=== PATIENT | female | born 1945 | race American Indian/Alaskan Native ===

== ENCOUNTER 2017-10-11 14:51 | Emergency (ER) | payer MEDICARE, OTHER ==
[2017-10-11 15:54] LABS: Basophils % (Auto) 0.4 % (0.0-1.8); Eosinophils % (Auto) 1.8 % (0.0-4.3); Hematocrit 37.9 % (30.3-42.9); Hemoglobin 12.7 gm/dl (10.1-14.3); Mean Corpuscular HGB Conc 34 % (30-34); Mean Corpuscular Hemoglobin 32 pg (28-32); Mean Corpuscular Volume 95 fl (79-97); Platelet Count 303 K/mm3 (140-440); Red Cell Distribution Width 13.1 % (13.2-15.2); White Blood Count 5.8 K/mm3 (4.5-11.0)
[2017-10-11 16:09] LABS: Anion Gap 15 mmol/L; BUN/Creatinine Ratio 33; Blood Urea Nitrogen 13 mg/dL (7-17); Calcium 8.4 mg/dL (8.4-10.2); Carbon Dioxide 26 mmol/L (22-30); Chloride 104.4 mmol/L (98-107); Glucose 100 mg/dL (65-100); Potassium 4.1 mmol/L (3.6-5.0); Sodium 141 mmol/L (137-145)
[2017-10-11] MEDS ORDERED: ASPIRIN PO ONE (21:09)
[2017-10-11] MEDS ORDERED: ALUM-MAG HYDROX-SIMETH 200-200-20MG/5ML PO ONE (21:09)
--- NOTE | 2017-10-11 21:31 | Emergency Department Report ---
ED Chest Pain HPI - General Chief Complaint: Chest Pain Stated Complaint: CHEST PAIN Time Seen by Provider: 10/11/17 20:17 Source: patient Mode of arrival: Ambulatory Limitations: No Limitations - History of Present Illness Initial Comments: 72-year-old female with a past medical history of GERD and possible elevated cholesterol presents to the hospital playing a left upper chest pain 3-4 days. Pain is intermittent, throbbing, rated 5/10 intensity. Patient ate greens last night sweats she thinks increase her symptoms that worsened in the evening. Patient is to take her Nexium, antacid, gas tablets without relief. She denies nausea, vomiting, diaphoresis, or shortness of breath. No posterior calf tenderness, leg asymmetry, or edema. Patient reports her last stress test was 8-9 years ago. Patient stopped smoking 20 years ago. Patient plans to travel out of state tomorrow - Related Data Previous Rx's Medication Instructions Recorded Last Taken Type Aspirin [Aspirin EC] 325 mg PO DAILY #30 tablet. 10/11/17 Unknown Rx Allergies Allergy/AdvReac Type Severity Reaction Status Date / Time codeine AdvReac Intermediate SWEAT,BREATHING Unverified 02/14/14 09:13 DIFFICULTIES Heart Score - HEART Score History: Slightly suspicious EKG: Non-specific Age: > 65 Risk factors: 1-2 risk factors Troponin: < normal limit HEART Score: 4 ED Review of Systems ROS: Stated complaint: CHEST PAIN Other details as noted in HPI Comment: All other systems reviewed and negative Other: Constitutional: No fevers chills Eyes: No eye pain visual changes ENT: No ear pain or throat pain Neck: Denies pain Respiratory: Denies cough wheezing shortness of breath Cardiovascular: as per hpi GI: Denies abdominal pain, nausea, vomiting, diarrhea : Denies dysuria Musculoskeletal: Denies back pain, joint swelling Skin: Denies rash, lesions, erythema Neurologic: Denies headache, numbness, weakness Psychiatric: Denies suicidal ideation, hallucinations ED Past Medical Hx - Past Medical History Previous Medical History?: No - Surgical History Past Surgical History?: Yes Additional Surgical History: Hernia repair - Social History Smoking Status: Never Smoker Substance Use Type: None - Medications Home Medications: Home Medications Medication Instructions Recorded Confirmed Last Taken Type Aspirin [Aspirin EC] 325 mg PO DAILY #30 tablet. 10/11/17 Unknown Rx ED Physical Exam - General Limitations: No Limitations - Other Other exam information: General: No limitations, patient is alert in no acute distress Head exam: Atraumatic, normocephalic Eyes exam: Normal appearance ENT: Moist mucous membrane, normal oropharynx Neck exam: Normal inspection, full range of motion, no meningismus nontender Respiratory exam: Clear to auscultation bilateral, no wheezes, rales, crackles Cardiovascular: Normal rate and rhythm, left upper chest wall tenderness Abdomen: Soft, nondistended, and nontender, with normal bowel sounds, no rebound, or guarding Extremity: Full range of motion normal inspection no deformity, tenderness or edema Back: Normal Inspection, full range of motion, no tenderness Neurologic: Alert, oriented x3, cranial nerves intact, no motor or sensory deficit Psychiatric: normal affect, normal mood Skin: Warm, dry, intact ED Course Vital Signs 10/11/17 15:01 Temperature 98.4 F Pulse Rate 72 Respiratory 18 Rate Blood Pressure 122/61 O2 Sat by Pulse 98 Oximetry ORI score - Ori Score Age > 65: (1) Yes Aspirin use within the Past 7 Days: (0) No 3 or more CAD Risk Factors: (0) No 2 or more Angina events in past 24 hrs: (1) Yes Known CAD with more than 50% Stenosis: (0) No Elevated Cardiac Markers: (0) No ST Deviation Greater than 0.5mm: (0) No ORI Score: 2 ED Medical Decision Making - Lab Data Result diagrams: 10/11/17 15:26 10/11/17 15:26 Lab Results 10/11/17 10/11/17 10/11/17 Range/Units 15:26 15:26 17:48 WBC 5.8 (4.5-11.0) K/mm3 RBC 4.00 (3.65-5.03) M/mm3 Hgb 12.7 (10.1-14.3) gm/dl Hct 37.9 (30.3-42.9) % MCV 95 (79-97) fl MCH 32 (28-32) pg MCHC 34 (30-34) % RDW 13.1 L (13.2-15.2) % Plt Count 303 (140-440) K/mm3 Lymph % (Auto) 39.4 H (13.4-35.0) % [place] % (Auto) 8.4 H (0.0-7.3) % Eos % (Auto) 1.8 (0.0-4.3) % Baso % (Auto) 0.4 (0.0-1.8) % Lymph # 2.3 (1.2-5.4) K/mm3 [place] # 0.5 (0.0-0.8) K/mm3 Eos # 0.1 (0.0-0.4) K/mm3 Baso # 0.0 (0.0-0.1) K/mm3 Seg Neutrophils % 50.0 (40.0-70.0) % Seg Neutrophils # 2.9 (1.8-7.7) K/mm3 Sodium 141 (137-145) mmol/L Potassium 4.1 (3.6-5.0) mmol/L Chloride 104.4 (98-107) mmol/L Carbon Dioxide 26 (22-30) mmol/L Anion Gap 15 mmol/L BUN 13 (7-17) mg/dL Creatinine 0.4 L (0.7-1.2) mg/dL Estimated GFR > 60 ml/min BUN/Creatinine Ratio 33 % Glucose 100 (65-100) mg/dL Calcium 8.4 (8.4-10.2) mg/dL Troponin T < 0.010 < 0.010 (0.00-0.029) ng/mL - EKG Data -: EKG Interpreted by Me EKG shows normal: sinus rhythm, axis (14), QRS complexes (73), ST-T waves (no stemi/t inv) Rate: normal (70) - EKG Data When compared to previous EKG there are: previous EKG unavailable - Radiology Data Radiology results: image reviewed (chest x-ray: negative, read by me) - Medical Decision Making Plan to admit patient to the hospital for further cardiac workup including stress testing. Also suspect that there is a MSK component to chest pain and possible GERD Patient declines admission at this time. Understands I cannot rule out unstable angina, or sudden cardiac . Patient states she has a dog at home that needs attention and it plans to travel out of state to take care of her mother with Alzheimer's. She states she will either come back, goes to the hospital in [place], follow up as outpatient with cardiology. Outpatient cardiology follow-up option will be provided to the patient will still be signing out AGAINST MEDICAL ADVICE at this time - Differential Diagnosis OH, unstable angina, GERD, MSK pain, PE Critical Care Time: No Critical care attestation.: If time is entered above; I have spent that time in minutes in the direct care of this critically ill patient, excluding procedure time. ED Disposition Clinical Impression: Chest pain Disposition: [id number] LEFT AGAINST MED ADVICE Is pt being admited?: No Does the pt Need Aspirin: No Condition: Stable Instructions: Chest Pain (ED) Additional Instructions: Initial ER chest pain evaluation was unremarkable. Admission was recommended so that we may obtain stress test to rule out heart disease that can cause sudden heart attack and . You have refused this admission at this time. You may return to an emergency department if chest pain symptoms acutely worsen. You may also follow-up up with the mechanical equipment test engineer provided for outpatient stress testing if you do not want to return to an ER. Prescriptions: Aspirin [Aspirin EC] 325 mg PO DAILY #30 tablet.dr Referrals: ZAHRA MAX MD [Staff Physician] - ZUNILDA (mechanical equipment test engineer ) Forms: AMA Form Time of Disposition: 21:41
[2017-10-11 21:44] VITALS: BP 127/65
--- NOTE | 2017-10-11 22:57 | XRay Report ---
FINAL REPORT PROCEDURE: XR CHEST 1V AP TECHNIQUE: Chest radiograph anteroposterior view. CPT 01655 HISTORY: left chest pain COMPARISON: No prior studies are available for comparison. FINDINGS: Heart: Normal. Mediastinum/Vessels: Normal. Lungs/Pleural space: Normal. Bony thorax: No acute osseous abnormality. Life support devices: None. IMPRESSION: No acute cardiopulmonary abnormality.
== END 2017-10-11 21:53 | disposition left against medical advice (07) ==
LOC: ED 14:51
DX: R07.9 Chest pain, unspecified (principal)
CPT/HCPCS: 36415; 71010; 80048; 84484; 85025; 93005; 93010